=== PATIENT | female | born 1950 | race Caucasian/White ===

== ENCOUNTER → 2017-05-20 | Outpatient (CLI) | payer MEDICARE, OTHER | END | disposition home or self-care (01) | LOC: LAB 14:03 | DX: E78.5 Hyperlipidemia, unspecified (principal); F11.90 Opioid use, unspecified, uncomplicated; G58.9 Mononeuropathy, unspecified ==

== ENCOUNTER 2019-10-16 20:45 | Inpatient (IN) | payer MEDICARE, OTHER ==
[~2019-10-16] VITALS: Ht 167.6 cm; Wt 70.4 kg
[2019-10-16 20:46] VITALS: BP 159/58
[2019-10-16 21:21] LABS: HEMATOCRIT 39.9 % (37.0-47.0); HEMOGLOBIN 12.5 g/dl (12.0-16.0); MEAN CELL VOLUME 93.9 fl (81.0-99.0); MEAN CORPUSCULAR HGB 29.4 pg (27.0-31.0); MEAN CORPUSCULAR HGB CONC 31.3 g/dl (33.0-37.0); PLATELET COUNT AUTOMATED 359 10*3/uL (130-400); RED BLOOD COUNT 4.25 10*6/uL (4.10-5.10); RED CELL DISTRI WIDTH 14.6 % (0-14.5); WHITE BLOOD COUNT 12.2 10*3/uL (4.8-10.8)
[2019-10-16 21:31] LABS: ACT PARTIAL THROMBO TIME 27.6 SECONDS (20.0-32.1); INTERNATIONAL NORM RATIO 0.9 (2.0-3.5)
[2019-10-16 21:39] LABS: ALBUMIN 3.2 gm/dl (3.1-4.5); ALKALINE PHOSPHATASE 88 U/L (45-117); BUN 9 mg/dl (7-24); CHLORIDE 103 mmol/L (98-107); CREATININE 0.87 mg/dL (0.55-1.02); LIPASE 97 U/L (73-393); SGOT/AST 10 IU/L (3-35); SGPT/ALT 16 U/L (12-78); SODIUM 137 mmol/L (136-145); TOTAL PROTEIN 7.3 gm/dL (6.4-8.2)
[2019-10-16 21:41] LABS: ATYPICAL LYMPHS 4 % (0-0); PLATELET SUFFICIENCY NORMAL (NORMAL); TOTAL CELLS COUNTED 100 #CELLS; TROPONIN I < 0.015 ng/ml (<0.045)
[2019-10-16 21:51] LABS: BILIRUBIN NEGATIVE (NEGATIVE); BLOOD TRACE-INTACT (NEGATIVE); CLARITY SL CLOUDY (CLEAR); COLOR YELLOW (YELLOW); GLUCOSE NEGATIVE (NEGATIVE); KETONE NEGATIVE (NEGATIVE); LEUKO ESTERASE NEGATIVE (NEGATIVE); NITRITE NEGATIVE (NEGATIVE); SPECIFIC GRAVITY <= 1.005 (1.005-1.030); UROBILINOGEN 0.2 E.U./dl (0.2-1.0)
[2019-10-16 22:08] LABS: BACTERIA TRACE; EPITHELIAL CELLS 0-2
[2019-10-16] MEDS ORDERED: ASPIRIN CHEWABL81 MG PO (23:22)
[2019-10-16] MEDS ORDERED: LASIX20 MG PO (23:22)
[2019-10-16] MEDS ORDERED: DIOVAN160 M2 PO (23:22)
[2019-10-16] MEDS ORDERED: PRAVACHOL20 MG PO (23:22)
[2019-10-16] MEDS ORDERED: VITAMIN C500 M8 PO (23:23)
[2019-10-16] MEDS ORDERED: VITAMIN B121000 MC1 PO (23:23)
[2019-10-16] MEDS ORDERED: GLUCOPHAGE500 M1 PO (23:23)
[2019-10-16 23:24] VITALS: BP 115/40
[2019-10-16] MEDS ORDERED: VITAMIN D-32000 UNI1 PO (23:24)
[2019-10-17 00:46] VITALS: BP 117/40
--- NOTE | 2019-10-17 00:46 | NUR ---
A 69, admitted to , under the services of DOLORES Hill DO with a diagnosis of COLITIS . Chief complaint is ABDOMEN PAIN. Patient arrived via bed from ER. Monitor applied. Initial assessment completed. Vital signs taken and recorded. DOLORES HILL DO notified of admission to the unit. Orders received. See assessment for past medical history, medications and allergies. Patient and/or family oriented to unit. Clothing/patient valuable form completed. PEDRO NESS
[2019-10-17] MEDS ORDERED: CALCIUM500 M1 PO (01:06)
--- NOTE | 2019-10-17 01:13 | NUR ---
INFORMED THAT HOME MED ARE VERIFIED AND UPDATED.
--- NOTE | 2019-10-17 01:42 | NUR ---
DILAUDID EFFECTIVE FOR ABD PAIN.
--- NOTE | 2019-10-17 06:05 | NUR ---
PATIENT MEDICATED WITH NORCO FOR LLQ ABD PAIN 10. WILL MONITOR
[2019-10-17 06:45] LABS: BASO # 0.1 10*3/uL (0.0-0.1); BASO % 0.4 % (0.0-1.0); HEMATOCRIT 35.7 % (37.0-47.0); LYMPH # 3.4 10*3/uL (1.3-4.4); LYMPH % 26.8 % (27.0-41.0); MEAN CELL VOLUME 96.5 fl (81.0-99.0); MEAN CORPUSCULAR HGB 29.7 pg (27.0-31.0); MEAN CORPUSCULAR HGB CONC 30.8 g/dl (33.0-37.0); MEAN PLATELET VOLUME 10.2 fl (9.6-12.3); MONO # 0.8 10*3/uL (0.1-1.0); MONO % 6.3 % (3.0-9.0); NEUT # 8.4 10*3/uL (2.3-7.9); NEUT % 66.2 % (47.0-73.0); PLATELET COUNT AUTOMATED 312 10*3/uL (130-400); RED CELL DISTRI WIDTH 14.6 % (0-14.5); WHITE BLOOD COUNT 12.6 10*3/uL (4.8-10.8)
[2019-10-17 06:59] LABS: ALBUMIN 2.6 gm/dl (3.1-4.5); ALKALINE PHOSPHATASE 68 U/L (45-117); BUN 9 mg/dl (7-24); CHLORIDE 107 mmol/L (98-107); CREATININE 0.88 mg/dL (0.55-1.02); POTASSIUM 4.3 mmol/L (3.5-5.1); SGOT/AST 9 IU/L (3-35); SGPT/ALT 13 U/L (12-78); SODIUM 141 mmol/L (136-145); TOTAL PROTEIN 5.8 gm/dL (6.4-8.2)
--- NOTE | 2019-10-17 07:02 | NUR ---
NORCO EFFECTIVE FOR ABD PAIN.
--- NOTE | 2019-10-17 07:34 | NUR ---
AWARE OF CONSULT. STATED CBC 10/18 CALL WITH RESULTS AT 0900.
[2019-10-17 08:00] VITALS: BP 94/48
[2019-10-17 12:00] VITALS: BP 94/33
--- NOTE | 2019-10-17 14:51 | NUR ---
PATIENT DECIDED TO LEAVE AGAINST MEDICAL ADVICE. NOTIFIED AND SHIFT DIRECTOR ИВАН. ROCAELLOCK DISCONTINUED. PT AMBULATORY OFF FLOOR WITH FAMILY.
== END 2019-10-17 15:00 | disposition left against medical advice (07) | DRG 392 ==
LOC: ED 20:45 → 4E 10-17 00:18 → EDHOLD 10-17 00:18 → 4E 10-17 00:30
PROVIDERS: Emergency Medicine Emergency Medical Services; Student in an Organized Health Care Education/Training Program; ADMIT Internal Medicine
DX: K52.9 Noninfective gastroenteritis and colitis, unspecified (principal); K63.9 Disease of intestine, unspecified; K57.90 Diverticulosis of intestine, part unspecified, without perforation or abscess without bleeding; I10 Essential (primary) hypertension; J44.9 Chronic obstructive pulmonary disease, unspecified; F17.210 Nicotine dependence, cigarettes, uncomplicated; E78.5 Hyperlipidemia, unspecified; D72.829 Elevated white blood cell count, unspecified; E11.65 Type 2 diabetes mellitus with hyperglycemia; R00.1 Bradycardia, unspecified; R31.21 Asymptomatic microscopic hematuria; N28.1 Cyst of kidney, acquired; K76.0 Fatty (change of) liver, not elsewhere classified; Z53.21 Procedure and treatment not carried out due to patient leaving prior to being seen by health care provider; Z79.82 Long term (current) use of aspirin; Z79.84 Long term (current) use of oral hypoglycemic drugs; Z79.899 Other long term (current) drug therapy; Z90.89 Acquired absence of other organs; Z98.51 Tubal ligation status; Z82.3 Family history of stroke; Z82.0 Family history of epilepsy and other diseases of the nervous system; Z71.6 Tobacco abuse counseling

== ENCOUNTER → 2024-01-15 | Outpatient (CLI) | payer MEDICARE, OTHER ==
[~2024-01-15] MED LIST: ASPIRIN CHEWABL81 MG PO; CALCIUM500 M1 PO; DIOVAN160 M2 PO; GLUCOPHAGE500 M1 PO; LASIX20 MG PO; PRAVACHOL20 MG PO; VITAMIN B121000 MC1 PO; VITAMIN C500 M8 PO; VITAMIN D-32000 UNI1 PO
== END | disposition home or self-care (01) ==
LOC: RESCLI 14:39
PROVIDERS: ATTEND Internal Medicine
DX: E11.9 Type 2 diabetes mellitus without complications (principal); J44.9 Chronic obstructive pulmonary disease, unspecified; I11.0 Hypertensive heart disease with heart failure; I50.9 Heart failure, unspecified; I73.9 Peripheral vascular disease, unspecified; I42.9 Cardiomyopathy, unspecified; E78.5 Hyperlipidemia, unspecified; Z00.00 Encounter for general adult medical examination without abnormal findings; Z79.899 Other long term (current) drug therapy; Z88.8 Allergy status to other drugs, medicaments and biological substances; Z98.890 Other specified postprocedural states